=== PATIENT | female | born 1995 | race African-American/Black ===

== ENCOUNTER 2018-09-03 01:58 | Observation (INO) | payer OTHER ==
[2018-09-03] MEDS ORDERED: IV RINGERS,LACTATED 1000ML 1,000 ML IV SCH (02:00)
[2018-09-03 02:29] LABS: BILIRUBIN,URINE NEGATIVE (NEG); CLARITY,URINE CLEAR; COLOR,URINE YELLOW; NITRITE,URINE NEGATIVE (NEG); PH,URINE 6.5; PROTEIN,URINE NEGATIVE (NEG-TRACE)
[2018-09-03 02:37] LABS: BARBITURATES NEG (NEG); BENZODIAZEPINES NEG (NEG); CANNABINOIDS NEG (NEG); COCAINE NEG (NEG); METHADONE NEG (NEG); OPIATES NEG (NEG); PHENCYCLIDINE NEG (NEG)
[2018-09-03 02:42] LABS: BACTERIA,URINE MODERATE /HPF (0-FEW); RBC,URINE 0 /HPF (0-2); SQUAMOUS EPITHELIAL CELL,UR FEW /LPF
[2018-09-03 02:55] LABS: AMPHETAMINE/METHAMPHETAMINE NEG (NEG)
== END 2018-09-03 03:00 | disposition home or self-care (01) ==
LOC: 3 SO LND 01:58
PROVIDERS: ADMIT Obstetrics & Gynecology; ATTEND Obstetrics & Gynecology
DX: O26.893 Other specified pregnancy related conditions, third trimester (principal); R10.30 Lower abdominal pain, unspecified; Z3A.36 36 weeks gestation of pregnancy
CPT/HCPCS: 80307; 81001; 87086; G0379

== ENCOUNTER 2019-09-10 23:58 | Emergency (ER) | payer OTHER ==
[~2019-09-10] VITALS: Ht 162.6 cm; Wt 54.5 kg
[2019-09-11 01:30] VITALS: BP 114/59
--- NOTE | 2019-09-11 01:53 | PHYS DOC ---
Past Medical History Past Medical History: No Pertinent History Past Surgical History: No Surgical History Smoking Status: Never Smoker Alcohol Use: None Adult General Chief Complaint Chief Complaint: SORE THROAT HPI HPI 24-year-old female presents to the emergency department with complaints of sore throat, headache, body ache, ear pain times one week. She is well states she is 17 weeks . Patient's tried [id number] medications without improve ment. Patient describes cough, states she is able to take by mouth intake orally without concern. She is afebrile, blood pressure within normal limits. Patient has sick contacts with her child is currently sick as well. Nothing makes her symptoms worse, nothing makes her symptoms better All other ROS negative unless documented in HPI Review of Systems Review of Systems See Above Allergies Allergies Allergies Coded Allergies Type Severity Reaction Last Updated Verified No Known Drug Allergies 09/03/18 No Physical Exam Physical Exam See Above Constitutional: Well developed, well nourished, no acute distress, non-toxic appearance. [] HENT: Normocephalic, atraumatic, bilateral erythema to TM, oropharynx moist, no oral exudates, nose normal. [] Eyes: PERRLA, EOMI, conjunctiva normal, no discharge. [] Neck: Normal range of motion, mild tenderness, supple, no stridor. [] Cardiovascular:Heart rate regular rhythm, no murmur [] Lungs & Thorax: Bilateral breath sounds clear to auscultation [] Skin: Warm, dry, no erythema, no rash. [] Back: No tenderness, no CVA tenderness. [] Extremities: No tenderness, no edema. [] Neurologic: Alert and oriented X 3, no focal deficits noted. [] Psychologic: Affect normal, judgement normal, mood normal. [] Current Patient Data Vital Signs Vital Signs Date Time Temp Pulse Resp B/P (MAP) Pulse Ox O2 Delivery O2 Flow Rate FiO2 09/11/19 01:30 98.3 110 19 114/59 (77) 100 Room Air 98.3 Lab Values Laboratory Tests Test 09/11/19 01:50 Influenza Type A Antigen Positive (NEGATIVE) Influenza Type B Antigen Negative (NEGATIVE) EKG EKG [] Radiology/Procedures Radiology/Procedures [] Course & Med Decision Making Course & Med Decision Making Pertinent Labs and Imaging studies reviewed. (See chart for details) []24-year-old female presents to the emergency department with complaints of sore throat, headache, body ache, ear pain times one week. She is well states she is 17 weeks . Patient's tried [id number] medications without improvement. Patient describes cough, states she is able to take by mouth intake orally without concern. She is afebrile, blood pressure within normal limits. Patient has sick contacts with her child is currently sick as well. Nothing makes her symptoms worse, nothing makes her symptoms better influenza A positive Tamiflu 75mg BID Recommend symptomatic treatment with OTC medications Tylenol as needed for fever Return precautions provided Dragon Disclaimer Dragon Disclaimer This electronic medical record was generated, in whole or in part, using a voice recognition dictation system. Departure Departure Impression: Primary Impression: Influenza A Disposition: HOME, SELF-CARE Condition: STABLE Referrals: UNKNOWN PCP NAME (PCP) Patient Instructions: Influenza, Adult, [id number] Additional Instructions: Tylenol as needed for pain/fever Tamiflu rx provided for 5 days + influenza A Encourage fluids as able, stay hydrated as much as possible Return to the ER with worsening symptoms, fever uncontrolled, inability to keep oral intake down (liquids) Scripts Oseltamivir Phosphate (TAMIFLU) 75 Mg Capsule 1 CAP PO BID, #10 CAP Prov: ALYCE JON MD 09/11/19 ALYCE JON MD Sep 11, 2019 01:53
[2019-09-11 02:17] LABS: INFLUENZA A PATIENT POSITIVE (NEGATIVE); INFLUENZA B PATIENT NEGATIVE (NEGATIVE)
[2019-09-11] MEDS ORDERED: OSEL75CA PO (02:24)
== END 2019-09-11 02:35 | disposition home or self-care (01) ==
LOC: ER 23:58
DX: O98.512 Other viral diseases complicating pregnancy, second trimester (principal); J10.1 Influenza due to other identified influenza virus with other respiratory manifestations; Z3A.17 17 weeks gestation of pregnancy
CPT/HCPCS: 87070; 87804; 87880; 99283